=== PATIENT | male | born 1995 | race Caucasian/White ===

== ENCOUNTER 2018-11-14 10:32 | Inpatient (IN) | payer OTHER ==
[2018-11-14 10:49] VITALS: BMI 23.3
--- NOTE | 2018-11-14 11:20 | HP ---
COWS - Scale Resting Pulse: 0= [place] 80 or Below Sweatin= Chills/Flushing Restless Observation: 3= Extraneous Movement Pupil Size: 1= Pupils >than Normal Bone or Joint Aches: 2= Severe Diffuse Aches Runny Nose/ Eye Tearin= Runny Nose/Eyes GI Upset > 30mins: 2= Nausea/Diarrhea Tremor Observation: 2= Slight Tremor Visible Yawning Observation: 1= 1-2x During Session Anxiety or Irritability: 2=Irritable/Anxious Goose Flesh Skin: 0=Smooth Skin COWS Score: 16 CIWA Score Nausea/Vomitin Muscle Tremors: 2 Anxiety: 2 Agitation: 2 Paroxysmal Sweats: 1-Minimal Palms Moist Orientation: 0-Oriented Tacttile Disturbances: 1-Very Mild Itch/Numbness Auditory Disturbances: 1-Very Mild Visual Disturbances: 0-None Headache: 1-Very Mild CIWA-Ar Total Score: 12 - Admission Criteria [facility] Guidelines: Admission for Medically Managed Detox: Requires at least one of the followin. CIWA greater than 12 2. Seizures within the past 24 hours 3. Delirium tremens within the past 24 hours 4. Hallucinations within the past 24 hours 5. Acute intervention needed for co occurring medical disorder 6. Acute intervention needed for co occurring psychiatric disorder 7. Severe withdrawal that cannot be handled at a lower level of care (continued vomiting, continued diarrhea, abnormal vital signs) requiring intravenous medication and/or fluids 8. Patient presents the following: CIWA greater than 12 Admission Criteria Met: Admission criteria met Admission ROS [facility] - [facility] Chief Complaint: i need help to stop using heroin,xanax,suboxone abused Allergies/Adverse Reactions: Allergies Allergy/AdvReac Type Severity Reaction Status Date / Time penicillin G Allergy Unknown unknown Verified 11/14/18 11:11 History of Present Illness: this 23 years old male with heroin,xanax dependence,suboxone abused,seeking detox,last detox in [place] in 03/24 also rehab nicotine dependence withdrawal symptom need help to come in for detox Exam Limitations: No Limitations - Ebola screening Have you traveled outside of the country in the last 21 days: No Have you had contact with anyone from an Ebola affected area: No Have you been sick,other than usual withdrawal symptoms: No Do you have a fever: No - Review of Systems Constitutional: Chills, Loss of Appetite, Malaise, Night Sweats, Changes in sleep, Weakness EENT: reports: Tearing, Nose Congestion Respiratory: reports: No Symptoms reported Cardiac: reports: No Symptoms Reported GI: reports: Nausea, Poor Appetite, Abdominal cramping : reports: No Symptoms Reported Musculoskeletal: reports: Back Pain, Joint Pain, Joint Stiffness Integumentary: reports: Dryness Neuro: reports: Headache, Tremors Endocrine: reports: No Symptoms Reported Hematology: reports: No Symptoms Reported Psychiatric: reports: No Sypmtoms Reported, Judgement Intact, Mood/Affect Appropiate, Orientated x3 Other Systems: Reviewed and Negative Patient History - Patient Medical History Hx Anemia: No Hx Asthma: No Hx Chronic Obstructive Pulmonary Disease (COPD): No Hx Cancer: No Hx Cardiac Disorders: No Hx Congestive Heart Failure: No Hx Hypertension: No Hx Hypercholesterolemia: No Hx Pacemaker: No HX Cerebrovascular Accident: No Hx Seizures: No Hx Dementia: No Hx Diabetes: No Hx Gastrointestinal Disorders: No Hx Liver Disease: No Hx Genitourinary Disorders: No Hx Sexually Transmitted Disorders: No Hx Renal Disease (ESRD): No Hx Thyroid Disease: No Hx Human Immunodeficiency Virus (HIV): No (last 03/24) Hx Hepatitis C: No Hx Depression: No Hx Suicide Attempt: No Hx Bipolar Disorder: No Hx Schizophrenia: No Other Medical History: no suicidal,no homicidal - Patient Surgical History Past Surgical History: No - PPD History Previous Implant?: Yes Documented Results: Negative w/o proof Implanted On Prior [facility] Admission?: No PPD to be Administered?: Yes - Smoking Cessation Smoking history: Current every day smoker Have you smoked in the past 12 months: Yes Aproximately how many cigarettes per day: 10 Hx Chewing Tobacco Use: No Initiated information on smoking cessation: Yes 'Breaking Loose' booklet given: 11/14/18 - Substance & Tx. History Hx Alcohol Use: No Hx Substance Use: Yes Substance Use Type: Heroin, Tranquilizers Hx Substance Use Treatment: Yes (in [place] in 03/24) - Substances Abused Heroin Route: Inhalation Frequency: Daily Amount used: 5-10 bags Age of first use: 14 Date of Last Use: 11/12/18 Xanax Route: Oral Frequency: 3-6 times per week Amount used: 8 mg. Age of first use: 14 Date of Last Use: 11/13/18 Marijuana Route: Smoking Frequency: Daily Amount used: $30 Age of first use: 11 Date of Last Use: 11/14/18 street methadone Route: Oral Frequency: 1-3 times last 30 days Amount used: 30 mg. Age of first use: 22 Date of Last Use: 11/10/18 Suboxone Route: SL Frequency: 1-3 times last 30 days Amount used: 4 mg. Age of first use: 13 Date of Last Use: 11/12/18 Family Disease History - Family Disease History Family History: Denies Admission Physical Exam [facility] - Vital Signs Vital Signs: Vital Signs - 24 hr 11/14/18 10:44 Temperature 97.4 F L Pulse Rate 75 Respiratory 18 Rate Blood Pressure 119/63 - Physical General Appearance: Yes: Moderate Distress, Severe Distress, Alcohol on Breath, Intoxicated, Cachetic HEENTM: Yes: Normal ENT Inspection, GRIFFIN, Pharynx Normal Respiratory: Yes: Lungs Clear, Normal Breath Sounds, No Respiratory Distress Neck: Yes: Within Normal Limits Breast: Yes: Within Normal Limits Cardiology: Yes: Within Normal Limits, Regular Rhythm, Regular Rate, S1, S2 Abdominal: Yes: Within Normal Limits, Normal Bowel Sounds, Soft Genitourinary: Yes: Within Normal Limits Back: Yes: Muscle Spasm Musculoskeletal: Yes: full range of Motion, Back pain, Muscle Pain Extremities: Yes: Within Normal Limits, Normal Range of Motion, Tremors Neurological: Yes: spiritual advisor II-XII NML intact, Fully Oriented, Alert, Motor Strength 5/5 Integumentary: Yes: Dry Lymphatic: Yes: Within Normal Limits - Diagnostic (1) Opioid dependence with withdrawal Current Visit: Yes Status: Acute (2) Uncomplicated sedative, hypnotic or anxiolytic withdrawal Current Visit: Yes Status: Acute (3) Nicotine dependence Current Visit: Yes Status: Acute (4) Methadone use disorder, mild, abuse Current Visit: Yes Status: Acute Cleared for Admission [facility] - Detox or Rehab [facility] Level of Care: Medically Managed Detox Regimen/Protocol: Methadone/Valium [facility] Breath Alcohol Content Breath Alcohol Content: 0 Urine Drug Screen - Results Drug Screen Negative: No Urine Drug Screen Results: THC-Marijuana, OPI-Opiates, BZO-Benzodiazepines, MTD- Methadone, FEN-Fentanyl, BUP-Suboxone Inpatient Rehab Admission - Rehab Decision to Admit Inpatient rehab admission?: No
[2018-11-14] MEDS ORDERED: LOPERAMIDE HCL 2 MG CAPSULE PO PRN (11:24)
[2018-11-14] MEDS ORDERED: IBUPROFEN 400 MG TABLET (FP) PO PRN (11:24)
[2018-11-14] MEDS ORDERED: MENTHOL/PHENOL 1 EACH UD MM PRN (11:24)
[2018-11-14] MEDS ORDERED: MAG HYDROX/AL HYDROX/SIMETH 30 ML UNIT-DOSE CUP PO PRN (11:24)
[2018-11-14] MEDS ORDERED: MAGNESIUM HYDROX 2400MG/30ML ORAL SUSPENSION 30 ML CUP PO PRN (11:24)
[2018-11-14] MEDS ORDERED: P-EPHED 60MG/TRIPROLIDI 2.5MG TABLET PO PRN (11:24)
[2018-11-14] MEDS ORDERED: MAGNESIUM CITRATE 300 ML BOTTLE PO PRN (11:24)
[2018-11-14] MEDS ORDERED: ACETAMINOPHEN 325 MG TABLET (FP) PO PRN (11:24)
[2018-11-14] MEDS ORDERED: guaiFENesin/D-METHORPHAN HB 10 ML UNIT-DOSE CUPS PO PRN (11:24)
[2018-11-14] MEDS ORDERED: METHADONE HCL 10 MG TABLET (FOR DETOX USE ONLY) PO ONE ×2 (12:30→23:00)
[2018-11-14] MEDS ORDERED: diazePAM 5 MG TABLET PO ONE (12:30)
[2018-11-14] MEDS ORDERED: NICOTINE POLACRILEX 4 MG GUM BUC PRN (13:57)
[2018-11-14] MEDS: NICOTINE 21 MG/24 HOURS TOPICAL PATCH TD SCH (14:12)
[2018-11-14] MEDS: diazePAM 5 MG TABLET PO SCH ×2 (14:14→22:34)
[2018-11-14] MEDS: diazePAM 5 MG TABLET PO PRN ×2 (16:56→21:04)
[2018-11-14] MEDS: CYCLOBENZAPRINE HCL 10 MG TABLET (FP) PO PRN (22:32)
[2018-11-14] MEDS: cloNIDine HCL 0.1 MG TABLET PO SCH (22:32)
[2018-11-14] MEDS: hydrOXYzine PAMOATE 25 MG CAPSULE (FP) PO PRN (22:32)
[2018-11-14] MEDS: THIAMINE HCL 100 MG TABLET (FP) PO SCH (22:34)
[2018-11-15] MEDS: diazePAM 5 MG TABLET PO SCH ×3 (06:25→22:10)
[2018-11-15] MEDS ORDERED: METHADONE HCL 10 MG TABLET (FOR DETOX USE ONLY) PO SCH (10:00)
[2018-11-15] MEDS: cloNIDine HCL 0.1 MG TABLET PO SCH ×2 (10:06→22:10)
[2018-11-15] MEDS: NICOTINE 21 MG/24 HOURS TOPICAL PATCH TD SCH (10:06)
[2018-11-15] MEDS: PRENATAL VITAMINS W/ FOLIC ACID TABLET (FP) PO SCH (10:06)
[2018-11-15] MEDS: diazePAM 5 MG TABLET PO PRN (10:07)
[2018-11-15 11:28] LABS: ALBUMIN 4.1 g/dl (3.4-5.0); ALK PHOS 45 U/L (45-117); ANION GAP 3 MMOL/L (8-16); BILIRUBIN,TOTAL 0.3 mg/dL (0.2-1); BLOOD UREA NITROGEN 16 mg/dL (7-18); CALCIUM 8.7 mg/dL (8.5-10.1); CHLORIDE 105 mmol/L (98-107); CO2 28 mmol/L (21-32); CREATININE 0.7 mg/dL (0.55-1.3); GLUCOSE,RANDOM 99 mg/dL (74-106); POTASSIUM 4.3 mmol/L (3.5-5.1); SGOT/AST 15 U/L (15-37); SGPT/ALT 25 U/L (13-61); SODIUM 137 mmol/L (136-145); TOT PROT 7.1 g/dl (6.4-8.2)
[2018-11-15 11:50] LABS: HEMATOCRIT 38.1 % (35.4-49); HEMOGLOBIN 13.3 GM/dL (11.7-16.9); MCH 29.8 pg (25.7-33.7); MCHC 34.8 g/dl (32.0-35.9); MEAN CELL VOLUME 85.6 fl (80-96); MEAN PLT VOLUME 7.8 fl (7.5-11.1); PLATELET COUNT 293 K/MM3 (134-434); RBC 4.46 M/mm3 (4.00-5.60); RDW 12.4 % (11.9-15.9); WHITE BLOOD COUNT 5.2 K/mm3 (4.0-10.0)
[2018-11-15 12:01] LABS: URINE APPEARANCE CLEAR; URINE BILIRUBIN NEGATIVE (<2.0 mg/dL); URINE COLOR YELLOW; URINE GLUCOSE (UA) NEGATIVE (NEGATIVE); URINE KETONE NEGATIVE (NEGATIVE); URINE LEUK ESTERASE NEGATIVE (NEGATIVE); URINE NITRITE NEGATIVE (NEGATIVE); URINE PROTEIN NEGATIVE (NEGATIVE); URINE UROBILINOGEN NEGATIVE mg/dL (0.2-1.0)
--- NOTE | 2018-11-15 14:44 | EKG ---
Test Reason : Blood Pressure : / mmHG Vent. Rate : 067 BPM Atrial Rate : 067 BPM P-R Int : 130 ms QRS Dur : 094 ms QT Int : 390 ms P-R-T Axes : 031 080 051 degrees QTc Int : 412 ms NORMAL SINUS RHYTHM NORMAL ECG NO PREVIOUS ECGS AVAILABLE Confirmed by Octavio Arreguin MD ([id number]) on 11/15/2018 2:44:04 PM Referred By: Confirmed By:Octavio Arreguin MD
--- NOTE | 2018-11-15 15:59 | PN ---
BHS COWS - Scale Resting Pulse: 0= [place] 80 or Below Sweatin=Flushed/Facial Moisture Restless Observation: 0= Sits Still Pupil Size: 0= Normal to Room Light Bone or Joint Aches: 1= Mild Discomfort Runny Nose/ Eye Tearin= Nasal Congestion GI Upset > 30mins: 1= Stomach Cramp Tremor Observation of Outstretched Hands: 1= Tremor [place], Not Seen Yawning Observation: 1= 1-2x During Session Anxiety or Irritability: 1=Feels Anxious/Irritable Goose Flesh Skin: 0=Smooth Skin COWS Score: 8 BHS Progress Note (SOAP) Subjective: night sweats abdominal cramp nasal congestion Objective: 11/15/18 16:01 A & O x 3 no distress noted Vital Signs Period Temp Pulse Resp BP Sys/[place] Pulse Ox Last 24 Hr 97.2 F-100.4 F 60-78 108-118/55-67 Laboratory Last Values WBC 5.2 K/mm3 (4.0-10.0) 11/15/18 05:45 RBC 4.46 M/mm3 (4.00-5.60) 11/15/18 05:45 Hgb 13.3 GM/dL (11.7-16.9) 11/15/18 05:45 Hct 38.1 % (35.4-49) 11/15/18 05:45 MCV 85.6 fl (80-96) 11/15/18 05:45 MCH 29.8 pg (25.7-33.7) 11/15/18 05:45 MCHC 34.8 g/dl (32.0-35.9) 11/15/18 05:45 RDW 12.4 % (11.9-15.9) 11/15/18 05:45 Plt Count 293 K/MM3 (134-434) 11/15/18 05:45 MPV 7.8 fl (7.5-11.1) 11/15/18 05:45 Sodium 137 mmol/L (136-145) 11/15/18 05:45 Potassium 4.3 mmol/L (3.5-5.1) 11/15/18 05:45 Chloride 105 mmol/L (98-107) 11/15/18 05:45 Carbon Dioxide 28 mmol/L (21-32) 11/15/18 05:45 Anion Gap 3 MMOL/L (8-16) L 11/15/18 05:45 BUN 16 mg/dL (7-18) 11/15/18 05:45 Creatinine 0.7 mg/dL (0.55-1.3) 11/15/18 05:45 Creat Clearance w eGFR > 60 (>60) 11/15/18 05:45 Random Glucose 99 mg/dL (74-106) 11/15/18 05:45 Calcium 8.7 mg/dL (8.5-10.1) 11/15/18 05:45 Total Bilirubin 0.3 mg/dL (0.2-1) 11/15/18 05:45 AST 15 U/L (15-37) 11/15/18 05:45 ALT 25 U/L (13-61) 11/15/18 05:45 Alkaline Phosphatase 45 U/L (45-117) 11/15/18 05:45 Total Protein 7.1 g/dl (6.4-8.2) 11/15/18 05:45 Albumin 4.1 g/dl (3.4-5.0) 11/15/18 05:45 Urine Color Yellow 11/15/18 07:40 Urine Appearance Clear 11/15/18 07:40 Urine pH 6.0 (5.0-8.0) 11/15/18 07:40 Ur Specific [place] 1.024 (1.010-1.035) 11/15/18 07:40 Urine Protein Negative (NEGATIVE) 11/15/18 07:40 Urine Glucose (UA) Negative (NEGATIVE) 11/15/18 07:40 Urine Ketones Negative (NEGATIVE) 11/15/18 07:40 Urine Blood Negative (NEGATIVE) 11/15/18 07:40 Urine Nitrite Negative (NEGATIVE) 11/15/18 07:40 Urine Bilirubin Negative (<2.0 mg/dL) 11/15/18 07:40 Urine Urobilinogen Negative mg/dL (0.2-1.0) 11/15/18 07:40 Ur Leukocyte Esterase Negative (NEGATIVE) 11/15/18 07:40 RPR Titer Nonreactive (NONREACTIVE) 11/15/18 05:45 HIV 1&2 Antibody Screen Negative 11/14/18 13:23 HIV P24 Antigen Negative 11/14/18 13:23 labs and V/s noted - febrile at 100.4F in the p.m, WBC, leuk esterase - wnl Assessment: 11/15/18 16:05 withdrawal sx Febrile at 100.4 - no complaints offered Plan: Continue detox Repeat Temp and if indicated give prn tylenol (EDWIN Grey made aware) Continue to monitor
[2018-11-15] MEDS: CYCLOBENZAPRINE HCL 10 MG TABLET (FP) PO PRN (22:09)
[2018-11-15] MEDS: hydrOXYzine PAMOATE 25 MG CAPSULE (FP) PO PRN (22:10)
[2018-11-15] MEDS: THIAMINE HCL 100 MG TABLET (FP) PO SCH (23:20)
[2018-11-16] MEDS: cloNIDine HCL 0.1 MG TABLET PO SCH ×2 (10:20→22:17)
[2018-11-16] MEDS: PRENATAL VITAMINS W/ FOLIC ACID TABLET (FP) PO SCH (10:20)
[2018-11-16] MEDS: diazePAM 5 MG TABLET PO SCH ×2 (10:21→22:17)
[2018-11-16] MEDS: METHADONE HCL 5 MG TABLET (FOR DETOX USE ONLY) PO SCH (10:21)
[2018-11-16] MEDS: NICOTINE 21 MG/24 HOURS TOPICAL PATCH TD SCH (10:22)
[2018-11-16] MEDS: diazePAM 5 MG TABLET PO PRN ×2 (14:12→18:11)
--- NOTE | 2018-11-16 15:31 | PN ---
S CIWA - CIWA Score Nausea/Vomitin-Mild Nausea/No Vomiting Muscle Tremors: 3 Anxiety: 3 Agitation: 3 Paroxysmal Sweats: 3 Orientation: 0-Oriented Tacttile Disturbances: 0-None Auditory Disturbances: 0-None Visual Disturbances: 0-None Headache: 0-None Present CIWA-Ar Total Score: 13 BHS COWS - Scale Resting Pulse: 0= [place] 80 or Below Sweatin= Chills/Flushing Restless Observation: 3= Extraneous Movement Pupil Size: 0= Normal to Room Light Bone or Joint Aches: 2= Severe Diffuse Aches Runny Nose/ Eye Tearin= Runny Nose/Eyes GI Upset > 30mins: 3= Vomiting/Diarrhea Tremor Observation of Outstretched Hands: 2= Slight Tremor Visible Yawning Observation: 1= 1-2x During Session Anxiety or Irritability: 2=Irritable/Anxious Goose Flesh Skin: 0=Smooth Skin COWS Score: 16 S Progress Note (SOAP) Subjective: Sweating a lot, feels tired, interrupted sleep Objective: 11/16/18 15:29 Last Vital Signs Temp Pulse Resp BP Pulse Ox 98.2 F 60 16 102/63 11/16/18 12:29 11/16/18 12:29 11/16/18 12:29 11/16/18 12:29 Laboratory Tests 11/14/18 11/15/18 11/15/18 13:23 05:45 05:45 WBC 5.2 RBC 4.46 Hgb 13.3 Hct 38.1 MCV 85.6 MCH 29.8 MCHC 34.8 RDW 12.4 Plt Count 293 MPV 7.8 Sodium 137 Potassium 4.3 Chloride 105 Carbon Dioxide 28 Anion Gap 3 L BUN 16 Creatinine 0.7 Creat Clearance w eGFR > 60 Random Glucose 99 Calcium 8.7 Total Bilirubin 0.3 AST 15 ALT 25 Alkaline Phosphatase 45 Total Protein 7.1 Albumin 4.1 Urine Color Urine Appearance Urine pH Ur Specific [place] Urine Protein Urine Glucose (UA) Urine Ketones Urine Blood Urine Nitrite Urine Bilirubin Urine Urobilinogen Ur Leukocyte Esterase RPR Titer HIV 1&2 Antibody Screen Negative HIV P24 Antigen Negative 11/15/18 11/15/18 05:45 07:40 WBC RBC Hgb Hct MCV MCH MCHC RDW Plt Count MPV Sodium Potassium Chloride Carbon Dioxide Anion Gap BUN Creatinine Creat Clearance w eGFR Random Glucose Calcium Total Bilirubin AST ALT Alkaline Phosphatase Total Protein Albumin Urine Color Yellow Urine Appearance Clear Urine pH 6.0 Ur Specific [place] 1.024 Urine Protein Negative Urine Glucose (UA) Negative Urine Ketones Negative Urine Blood Negative Urine Nitrite Negative Urine Bilirubin Negative Urine Urobilinogen Negative Ur Leukocyte Esterase Negative RPR Titer Nonreactive HIV 1&2 Antibody Screen HIV P24 Antigen Labs reviewed Assessment: 11/16/18 15:30 Withdrawal symptoms Plan: Continue detox Encouraged PO water intake
[2018-11-16] MEDS: CYCLOBENZAPRINE HCL 10 MG TABLET (FP) PO PRN (22:17)
[2018-11-16] MEDS: hydrOXYzine PAMOATE 25 MG CAPSULE (FP) PO PRN (22:18)
[2018-11-16] MEDS: THIAMINE HCL 100 MG TABLET (FP) PO SCH (22:18)
[2018-11-17] MEDS: METHADONE HCL 5 MG TABLET (FOR DETOX USE ONLY) PO SCH (10:28)
[2018-11-17] MEDS: NICOTINE 21 MG/24 HOURS TOPICAL PATCH TD SCH (10:29)
[2018-11-17] MEDS: cloNIDine HCL 0.1 MG TABLET PO SCH ×2 (10:29→22:13)
[2018-11-17] MEDS: diazePAM 5 MG TABLET PO SCH ×2 (10:29→22:13)
[2018-11-17] MEDS: PRENATAL VITAMINS W/ FOLIC ACID TABLET (FP) PO SCH (10:30)
--- NOTE | 2018-11-17 14:39 | PN ---
BHS Progress Note (SOAP) Subjective: Fatigue, Interrupted Sleep. Objective: PATIENT A & O X 3, OBSERVED AMBULATING ON UNIT. IN NO ACUTE DISTRESS. 11/17/18 14:39 Vital Signs Temperature 97.9 F 11/17/18 10:29 Pulse Rate 92 H 11/17/18 10:29 Respiratory Rate 18 11/17/18 10:29 Blood Pressure 105/60 11/17/18 10:29 O2 Sat by Pulse Oximetry (%) Laboratory Tests 11/14/18 11/15/18 11/15/18 13:23 05:45 05:45 WBC 5.2 RBC 4.46 Hgb 13.3 Hct 38.1 MCV 85.6 MCH 29.8 MCHC 34.8 RDW 12.4 Plt Count 293 MPV 7.8 Sodium 137 Potassium 4.3 Chloride 105 Carbon Dioxide 28 Anion Gap 3 L BUN 16 Creatinine 0.7 Creat Clearance w eGFR > 60 Random Glucose 99 Calcium 8.7 Total Bilirubin 0.3 AST 15 ALT 25 Alkaline Phosphatase 45 Total Protein 7.1 Albumin 4.1 Urine Color Urine Appearance Urine pH Ur Specific [place] Urine Protein Urine Glucose (UA) Urine Ketones Urine Blood Urine Nitrite Urine Bilirubin Urine Urobilinogen Ur Leukocyte Esterase RPR Titer HIV 1&2 Antibody Screen Negative HIV P24 Antigen Negative 11/15/18 11/15/18 05:45 07:40 WBC RBC Hgb Hct MCV MCH MCHC RDW Plt Count MPV Sodium Potassium Chloride Carbon Dioxide Anion Gap BUN Creatinine Creat Clearance w eGFR Random Glucose Calcium Total Bilirubin AST ALT Alkaline Phosphatase Total Protein Albumin Urine Color Yellow Urine Appearance Clear Urine pH 6.0 Ur Specific [place] 1.024 Urine Protein Negative Urine Glucose (UA) Negative Urine Ketones Negative Urine Blood Negative Urine Nitrite Negative Urine Bilirubin Negative Urine Urobilinogen Negative Ur Leukocyte Esterase Negative RPR Titer Nonreactive HIV 1&2 Antibody Screen HIV P24 Antigen LABS NOTED. Assessment: 11/17/18 14:40 WITHDRAWAL SYMPTOMS. Plan: CONTINUE DETOX. INCREASE DAILY PO FLUID INTAKE.
[2018-11-17] MEDS: THIAMINE HCL 100 MG TABLET (FP) PO SCH (22:13)
[2018-11-17] MEDS: MELATONIN 5 MG TABLETS PO PRN (22:13)
[2018-11-17] MEDS: CYCLOBENZAPRINE HCL 10 MG TABLET (FP) PO PRN (22:15)
--- NOTE | 2018-11-18 09:50 | PN ---
S Progress Note (SOAP) Subjective: alert,irritable,anxious,interrupted sleep,aching pain Objective: 11/18/18 09:49 Vital Signs Temperature 98.3 F 11/18/18 09:12 Pulse Rate 84 11/18/18 09:12 Respiratory Rate 18 11/18/18 09:12 Blood Pressure 117/64 11/18/18 09:12 O2 Sat by Pulse Oximetry (%) Assessment: 11/18/18 09:49 withdrawal symptom Plan: continue detox
[2018-11-18] MEDS ORDERED: diazePAM 5 MG TABLET PO SCH (10:00)
[2018-11-18] MEDS ORDERED: METHADONE HCL 10 MG TABLET (FOR DETOX USE ONLY) PO SCH (10:00)
[2018-11-18] MEDS: PRENATAL VITAMINS W/ FOLIC ACID TABLET (FP) PO SCH (10:38)
[2018-11-18] MEDS: NICOTINE 21 MG/24 HOURS TOPICAL PATCH TD SCH (10:38)
[2018-11-18] MEDS: cloNIDine HCL 0.1 MG TABLET PO SCH ×2 (10:38→22:08)
[2018-11-18] MEDS: THIAMINE HCL 100 MG TABLET (FP) PO SCH (22:08)
[2018-11-18] MEDS: MELATONIN 5 MG TABLETS PO PRN (22:11)
[2018-11-18] MEDS: CYCLOBENZAPRINE HCL 10 MG TABLET (FP) PO PRN (22:11)
[2018-11-19] MEDS ORDERED: METHADONE HCL 5 MG TABLET (FOR DETOX USE ONLY) PO SCH (06:00)
--- NOTE | 2018-11-19 09:03 | DS ---
[facility] Detox Discharge Summary Admission Date: 11/14/18 Discharge Date: 11/19/18 - History Present History: Opioid Dependence, Sedative Dependence - Physical Exam Results Vital Signs: Vital Signs Temperature 97.5 F L 11/19/18 07:35 Pulse Rate 64 11/19/18 07:35 Respiratory Rate 18 11/19/18 07:35 Blood Pressure 127/67 11/19/18 07:35 O2 Sat by Pulse Oximetry (%) - Treatment Hospital Course: Detox Protocol Followed, Detoxed Safely, Responded well, Discharged Condition Good, Rehab Referral Accepted - Medication Discharge Medications: Ambulatory Orders NK [No Known Home Medication] 11/14/18 - Diagnosis (1) Methadone use disorder, mild, abuse Current Visit: Yes Status: Acute (2) Opioid dependence with withdrawal Current Visit: Yes Status: Chronic (3) Uncomplicated sedative, hypnotic or anxiolytic withdrawal Current Visit: Yes Status: Chronic (4) Nicotine dependence Current Visit: Yes Status: Chronic Qualifiers: Nicotine product type: cigarettes Substance use status: uncomplicated Qualified Code(s): F17.210 - Nicotine dependence, cigarettes, uncomplicated - AMA Did Patient Leave Against Medical Advice: No (referred to [facility])
[2018-11-19 09:43] VITALS: BP 119/72; PULSE 70; TEMP 98.1
== END 2018-11-19 09:12 | disposition home or self-care (01) | DRG 897 ==
LOC: YASAS 10:32 → Y6N 11:47 → UNDODISIN 11-17 10:32
PROVIDERS: ADMIT Surgery; ATTEND Surgery
PROC: HZ2ZZZZ Detoxification Services for Substance Abuse Treatment (ICD-10-PCS; principal; 2018-11-14)
DX: F11.23 Opioid dependence with withdrawal (principal); F13.230 Sedative, hypnotic or anxiolytic dependence with withdrawal, uncomplicated; F17.210 Nicotine dependence, cigarettes, uncomplicated; R50.9 Fever, unspecified; Z88.0 Allergy status to penicillin
CPT/HCPCS: 36415; 80053; 81003; 85027; 86593; 87389; 93005; 93010; J0735